=== PATIENT | male | born 1970 | race Caucasian/White ===

== ENCOUNTER → 2017-01-03 | Outpatient (CLI) | payer BC ==
[2017-01-03 08:37] LABS: CHLORIDE,CL 105 mmol/L (98-110); SODIUM,NA 137 mmol/L (136-146)
== END | disposition home or self-care (01) ==
LOC: MW.CHIM 07:50
PROVIDERS: ATTEND Internal Medicine
DX: I10 Essential (primary) hypertension (principal); E11.9 Type 2 diabetes mellitus without complications
CPT/HCPCS: 36415; 80053; 80061; 83036; 85025

== ENCOUNTER 2017-04-10 07:38 | Emergency (ER) | payer BC, OTHER ==
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
[2017-04-10] MEDS ORDERED: Sodium Chloride 0.9% 1,000 ML IV ONE (08:01)
[2017-04-10 08:53] LABS: CHLORIDE,CL 106 mmol/L (98-110); SODIUM,NA 137 mmol/L (136-146)
--- NOTE | 2017-04-10 09:16 | CT ---
CT of the chest, abdomen and pelvis with contrast. HISTORY: Shortness of breath TECHNIQUE: Axial CT images were obtained of the chest, abdomen and pelvis following administration o f 100 mL of Isovue-370 in the right antecubital fossa without complication. Coronal and sagittal rec onstructions obtained. FINDINGS: Chest: The lungs are clear without focal consolidation. No pleural effusion or pneumothorax. There i s calcified granuloma within the medial right lower lobe. There is an intrafissural lymph node noted along the right major fissure. The heart is normal in size without a pericardial effusion. No media stinal, hilar, or axillary lymphadenopathy. The central airways are clear. Abdomen: The liver, spleen, adrenal glands, and pancreas appear normal. The gallbladder appears norm al. No bulky retroperitoneal lymphadenopathy or abdominal ascites. The kidneys enhance and function symmetrically without evidence of obstructive uropathy. Pelvis: The large and small bowel are normal in caliber without evidence of obstruction. No pericolo eliezer or pericecal inflammation. The urinary bladder appears normal. No pelvic lymphadenopathy or free pelvic fluid. There is a nondisplaced right anterior seventh rib fracture. IMPRESSION: 1. Nondisplaced right anterior seventh rib fracture. 2. Otherwise no acute findings within the chest, abdomen, or pelvis.
[2017-04-10 10:43] VITALS: BP 133/79
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
[2017-04-10] MEDS ORDERED: Iopamidol 755 MG/ML 500 ML Multipack Bottle IVPUSH STA (16:13)
== END 2017-04-10 10:45 | disposition home or self-care (01) ==
LOC: MW.ED 07:38
DX: S22.31XA Fracture of one rib, right side, initial encounter for closed fracture (principal); F17.200 Nicotine dependence, unspecified, uncomplicated; Z79.4 Long term (current) use of insulin; Z79.84 Long term (current) use of oral hypoglycemic drugs; V43.92XA Unspecified car occupant injured in collision with other type car in traffic accident, initial encounter
CPT/HCPCS: 71260; 74177; 80053; 80305; 81001; 83690; 84484; 85025; 93005; 96360; 99284; G0480; J7040; Q9967; 99283

== ENCOUNTER 2019-03-29 09:47 | Emergency (ER) | payer BC ==
[2019-03-29 10:01] VITALS: BP 158/70
[2019-03-29] MEDS ORDERED: Ketorolac 60 MG/2 ML SDV IM ONE (10:05)
[2019-03-29] MEDS ORDERED: Diphtheria,Pertussis(Acell),Tetanus Vaccine 0.5 ML Syringe IM ONE (10:07)
[2019-03-29] MEDS ORDERED: Bacitracin Oint 1 GM U/D Packet TOP ONE (10:07)
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
[2019-03-29] MEDS ORDERED: Sodium Chloride 0.9% 2.5 ML Syringe FLUSH PRN (11:04)
[2019-03-29] MEDS ORDERED: Sodium Chloride 0.9% 1,000 ML IV ONE ×2 (11:04→12:20)
[2019-03-29] MEDS ORDERED: Sodium Chloride 0.9% 10 ML Syringe FLUSH PRN (11:04)
--- NOTE | 2019-03-29 11:21 | CR ---
Indication: Injury and pain Technique: Left ankle 3 views Comparison: None Findings/Impression: Bones: No acute fracture dislocation with fractures involving the lateral malleolus and posterior malleolus. Joint spaces: Ankle mortise is significantly widened anteriorly and medially. Soft tissues: Moderate soft tissue swelling. Dictated by Jose Heredia MD @ Mar 29 2019 11:18AM Signed by Dr. Jose Heredia @ Mar 29 2019 11:20AM
--- NOTE | 2019-03-29 11:23 | CR ---
Indication: Injury and pain Technique: Left foot 2 views Comparison: None Findings: Bones: No fracture or dislocation present in the foot. A fracture dislocation about the ankle is detailed on a separate report. Joint spaces: Unremarkable. Soft tissues: Unremarkable. Impression: No sign of acute injury in the left foot. Dictated by Jose Heredia MD @ Mar 29 2019 11:20AM Signed by Dr. Jose Heredia @ Mar 29 2019 11:22AM
--- NOTE | 2019-03-29 11:27 | CR ---
Indication: Injury and pain Technique: Left tibia and fibula 2 views Comparison: None Findings: Bones: The proximal to mid distal shafts of the tibia and fibula are normal. A fracture dislocation about the ankle is detailed in a separate report. Joint spaces: Unremarkable. Soft tissues: Unremarkable. Impression: No sign of acute injury in the proximal to distal shafts of the left tibia and fibula. Dictated by Jose Heredia MD @ Mar 29 2019 11:22AM Signed by Dr. Jose Heredia @ Mar 29 2019 11:25AM
[2019-03-29] MEDS ORDERED: ceFAZolin 2 GM in Premix Bag 1 BAG IV ONE (11:41)
[2019-03-29] MEDS ORDERED: Midazolam 1 MG/ML 2 ML SDV ONE (11:56)
--- NOTE | 2019-03-29 11:56 | PCM.PREANE ---
Preanesthetic Assessment - Anesthesia/Transfusion/Family Hx Anesthesia History: Prior Anesthesia Without Reaction Family History of Anesthesia Reaction: No Transfusion History: No Prior Transfusion(s) - Review of Systems General: No Symptoms Pulmonary: No Symptoms Cardiovascular: No Symptoms Gastrointestinal: No Symptoms Neurological: No Symptoms Other: Reports: None - Physical Assessment NPO Status Date: 03/29/19 NPO Status Time: 09:00 O2 Sat by Pulse Oximetry: 99 Respiratory Rate: 18 Vital Signs: Last Vital Signs Temp 97.6 F 03/29/19 09:57 Pulse 120 H 03/29/19 09:57 Resp 18 03/29/19 09:57 BP 158/70 H 03/29/19 09:57 Pulse Ox 99 03/29/19 09:57 Height: 5 ft 11 in Weight: 99.79 kg ASA Class: 2E Mental Status: Alert & Oriented x3 Airway Class: Mallampati = 2 Dentition: Reports: Normal Dentition Thyro-Mental Finger Breadths: 3 Mouth Opening Finger Breadths: 3 ROM/Head Extension: Full Lungs: Clear to Auscultation, Normal Respiratory Effort Cardiovascular: Regular Rate, Regular Rhythm - Lab Values: Laboratory Last Values POC Glucose 230 mg/dL (60-110) H 03/29/19 10:09 - Allergies Allergies/Adverse Reactions: Allergies Allergy/AdvReac Type Severity Reaction Status Date / Time No Known Allergies Allergy Verified 03/29/19 09:57 - Anesthesia Plan Free Text/Narrative:: Heavy Etoh use last night. Pt has received 1 liter NS in the ER. Pt understands the risk of aspiration and wishes to continue at this time. - Acknowledgements Anesthesia Type Planned: MAC Pt an Appropriate Candidate for the Planned Anesthesia: Yes Alternatives and Risks of Anesthesia Discussed w Pt/Guardian: Yes Pt/Guardian Understands and Agrees with Anesthesia Plan: Yes PreAnesthesia Questionnaire HEENT History: Reports: None Cardiovascular History: Reports: Hypertension Respiratory History: Reports: None Gastrointestinal History: Reports: None Genitourinary History: Reports: None Musculoskeletal History: Reports: None Neurological History: Reports: None Psychiatric History: Reports: None Endocrine/Metabolic History: Reports: Diabetes, Type I, Obesity/BMI 30+ Hematologic History: Reports: None Immunologic History: Reports: None Oncologic (Cancer) History: Reports: None Dermatologic History: Reports: None - Infectious Disease History Infectious Disease History: Reports: Chicken Pox - Past Surgical History GI Surgical History: Reports: Appendectomy Other Musculoskeletal Surgeries/Procedures:: Repair foot fracture - SUBSTANCE USE Smoking Status *Q: Former Smoker (Quit 2017) Recreational Drug Use History: No - HOME MEDS Home Medications: Home Meds Insulin Glarg,Human.Rec.Analog [LantUS Solostar] 45 unit SQ DAILY 04/10/17 [ History] Lisinopril [Prinivil] 10 mg PO DAILY 04/10/17 [History] metFORMIN [Glucophage] 1,000 mg PO DAILY 04/10/17 [History] Aspirin 81 mg PO DAILY 03/29/19 [History] Dulaglutide [Trulicity] 1.5 mg SQ WEEKLY 03/29/19 [History] Empagliflozin [Jardiance] 1 tab PO DAILY 03/29/19 [History] hydroCHLOROthiazide [Hydrochlorothiazide] 0.5 tab PO DAILY 03/29/19 [History] - CURRENT (IN HOUSE) MEDS Current Meds: Current Medications Sodium Chloride (Normal Saline) 1,000 mls @ 999 mls/hr IV STAT ONE Stop: 03/29/19 12:04 Last Admin: 03/29/19 11:29 Dose: 999 mls/hr Cefazolin Sodium/Dextrose 2 gm (/ Premix) 50 mls @ 100 mls/hr IV ONETIME ONE Stop: 03/29/19 12:10 Sodium Chloride (Saline Flush) 10 ml FLUSH ASDIRECTED PRN PRN Reason: Keep Vein Open Last Admin: 03/29/19 11:30 Dose: 10 ml Sodium Chloride (Saline Flush) 2.5 ml FLUSH ASDIRECTED PRN PRN Reason: Keep Vein Open Last Admin: 03/29/19 11:30 Dose: 2.5 ml Discontinued Medications Bacitracin (Bacitracin Oint 1 Gm) 1 dose TOP ONETIME ONE Stop: 03/29/19 10:08 Last Admin: 03/29/19 10:58 Dose: 1 dose Diphtheria/Tetanus/Acell Pertussis (Adacel) 0.5 ml IM .ONCE ONE Stop: 03/29/19 10:08 Last Admin: 03/29/19 10:54 Dose: 0.5 ml Ketorolac Tromethamine (Toradol) 60 mg IM ONETIME ONE Stop: 03/29/19 10:06 Last Admin: 03/29/19 10:57 Dose: 60 mg
[2019-03-29] MEDS ORDERED: Propofol 200 MG/20 ML SDV ONE (11:57)
[2019-03-29] MEDS ORDERED: fentaNYL 100 MCG/2 ML SDV ONE (11:57)
[2019-03-29] MEDS ORDERED: Bacitracin Oint 1 GM U/D Packet ONE (12:07)
[2019-03-29] MEDS ORDERED: Sodium Chloride 0.9% 10 ML SDV IV ONE (12:20)
--- NOTE | 2019-03-29 13:24 | CR ---
Indication: Fracture dislocation post reduction Technique: Left ankle 2 views Comparison: March 29, 2019 Findings/Impression: The dislocation has been successfully reduced. Ankle mortise is now congruent. Again demonstrated is a bimalleolar fracture involving the lateral and posterior malleolus. No new abnormality. Dictated by Jose Heredia MD @ Mar 29 2019 1:21PM Signed by Dr. Jose Heredia @ Mar 29 2019 1:22PM
--- NOTE | 2019-03-29 13:39 | CT ---
HISTORY: Left ankle pain, fractures. TECHNIQUE: Noncontrast CT of the left ankle. COMPARISON: Radiographs 03/29/2019. FINDINGS: Acute comminuted displaced fracture of the posterior malleolus of the distal tibia demonstrating 1.4 cm of maximal displacement at the articular surface as seen on sagittal image #41 of series 204. Fracture extends to the posterior margin of the medial malleolus. There is widening of the ankle mortise medially and anteriorly. Note is made of lateral subluxation of the talar dome with respect to the tibial plafond compatible with disruption of the deltoid ligament. There are tiny calcific or ossific fragments along the expected course of the deltoid ligament. - There is an acute comminuted fracture of the distal fibula. The dominant lateral malleolar fragment demonstrates approximately 1.3 cm of lateral displacement. The fibular metaphysis above the level of the fracture is impacted in to distal tibial fracture. There is an additional small fragment arising from the anterior distal fibula at the anterior syndesmotic ligament attachment site to the fibula with that fragment demonstrating 2 cm of displacement on axial image #373 for example. There is soft tissue swelling and hemorrhage about the lower leg and ankle. - Mild ankle joint degenerative changes. The talus appears intact. There is no calcaneal fracture. Tiny plantar calcaneal spur. Os peroneum. IMPRESSION: 1. Disrupted left ankle mortise. 2. Comminuted intra-articular fracture of the posterior malleolus of the distal tibia demonstrating 1.4 cm displacement. Widening of the medial ankle mortise with lateral subluxation of the talar dome with respect to the tibial plafond indicating deltoid ligament disruption. 3. Comminuted displaced fracture of the distal fibular metaphysis. There is lateral displacement of the dominant fragment by 1.3 cm. Additional small fragment involves the anterior syndesmotic ligament attachment site to the fibula with 2 cm displacement. 4. Soft tissue swelling and hemorrhage about the lower leg and ankle. Dictated by Samy Etienne MD @ 03/29/2019 1:36:54 PM Please note that all CT scans at this facility use dose modulation, iterative reconstruction, and/or weight-based dosing when appropriate to reduce radiation dose to as low as reasonably achievable. Dictated by: Samy Etienne MD @ 03/29/2019 13:36:58 (Electronically Signed)
== END 2019-03-29 13:34 | disposition home or self-care (01) ==
LOC: MW.ED 09:47
DX: S82.842A Displaced bimalleolar fracture of left lower leg, initial encounter for closed fracture (principal); I10 Essential (primary) hypertension; E10.9 Type 1 diabetes mellitus without complications; Z79.82 Long term (current) use of aspirin; Z79.899 Other long term (current) drug therapy; Z79.4 Long term (current) use of insulin; Z23 Encounter for immunization; Z90.49 Acquired absence of other specified parts of digestive tract; W01.0XXA Fall on same level from slipping, tripping and stumbling without subsequent striking against object, initial encounter; Y92.009 Unspecified place in unspecified non-institutional (private) residence as the place of occurrence of the external cause
CPT/HCPCS: 27810; 73590; 73600; 73610; 73620; 73700; 82962; 90471; 90715; 96361; 96365; 96372; 99152; 99153; 99283; A4217; J0690; J1885; J2250; J2704; J3010; J7040

== ENCOUNTER 2019-04-03 08:40 | Day surgery (SDC) | payer BC ==
[~2019-04-03 08:40] MED LIST: Acetaminophen/HYDROcodone 325-5 MG Tab PO PRN; Bupivacaine 0.25% 10 ML SDV ONE; Dexamethasone 4 MG/ML 5 ML MDV ONE; Lactated Ringers 1,000 ML IV SCH; Midazolam 1 MG/ML 2 ML SDV ONE; Mineral Oil/Petrolatum Ophth Oint 3.5 GM Tube ONE; Ondansetron 4 MG/2 ML SDV ONE; Propofol 200 MG/20 ML SDV ONE; Rocuronium 100 MG/10 ML Syringe ONE; ceFAZolin 2 GM in Premix Bag 1 BAG IV SCH; ceFAZolin/Dextrose,Iso-Osmotic 2 GM/50 ML Duplex Bag IV ONE; fentaNYL 250 MCG/5 ML SDV ONE
[2019-04-03] MEDS ORDERED: Phenylephrine 1% 10 MG/ML SDV ONE (09:18)
--- NOTE | 2019-04-03 09:31 | PCM.PREANE ---
Preanesthetic Assessment - Anesthesia/Transfusion/Family Hx Anesthesia History: Prior Anesthesia Without Reaction Family History of Anesthesia Reaction: No Transfusion History: No Prior Transfusion(s) - Review of Systems General: No Symptoms Pulmonary: No Symptoms Cardiovascular: No Symptoms (States he is active-shovels, mows grass, walks and no sob or chest pain) Gastrointestinal: No Symptoms Neurological: No Symptoms Other: Reports: None - Physical Assessment NPO Status Date: 04/02/19 NPO Status Time: 11:59 O2 Sat by Pulse Oximetry: 95 Respiratory Rate: 20 Vital Signs: Last Vital Signs Temp 36.0 C 04/03/19 08:50 Pulse 114 H 04/03/19 08:50 Resp 20 04/03/19 08:50 BP 125/85 04/03/19 08:50 Pulse Ox 95 04/03/19 08:50 Height: 1.83 m Weight: 113.398 kg ASA Class: 2 Mental Status: Alert & Oriented x3 Airway Class: Mallampati = 3 Dentition: Reports: Normal Dentition ROM/Head Extension: Full Lungs: Clear to Auscultation Cardiovascular: Regular Rate - Allergies Allergies/Adverse Reactions: Allergies Allergy/AdvReac Type Severity Reaction Status Date / Time No Known Allergies Allergy Verified 04/02/19 12:13 - Blood Blood Available: No - Acknowledgements Anesthesia Type Planned: General Anesthesia (scheduled prone case) Pt an Appropriate Candidate for the Planned Anesthesia: Yes Alternatives and Risks of Anesthesia Discussed w Pt/Guardian: Yes Pt/Guardian Understands and Agrees with Anesthesia Plan: Yes PreAnesthesia Questionnaire HEENT History: Reports: Other (See Below) Other HEENT History: wears glasses Cardiovascular History: Reports: High Cholesterol, Hypertension Respiratory History: Reports: None Gastrointestinal History: Reports: None Genitourinary History: Reports: None Musculoskeletal History: Reports: Fracture Other Musculoskeletal History: hx fx rt foot Neurological History: Reports: None Psychiatric History: Reports: None Endocrine/Metabolic History: Reports: Diabetes, Type II, Obesity/BMI 30+ Hematologic History: Reports: None Immunologic History: Reports: None Oncologic (Cancer) History: Reports: None Dermatologic History: Reports: None - Infectious Disease History Infectious Disease History: Reports: Chicken Pox - Past Surgical History Head Surgeries/Procedures: Reports: None HEENT Surgical History: Reports: None Cardiovascular Surgical History: Reports: None Respiratory Surgical History: Reports: None GI Surgical History: Reports: Appendectomy Male Surgical History: Reports: None Endocrine Surgical History: Reports: None Neurological Surgical History: Reports: None Musculoskeletal Surgical History: Reports: Other (See Below) (right ankle) Other Musculoskeletal Surgeries/Procedures:: Repair foot fracture, hx hand surgery Oncologic Surgical History: Reports: None Dermatological Surgical History: Reports: None - SUBSTANCE USE Smoking Status *Q: Former Smoker Tobacco Use Within Last Twelve Months: No Recreational Drug Use History: No - HOME MEDS Home Medications: Home Meds Insulin Glarg,Human.Rec.Analog [LantUS Solostar] 45 unit SQ DAILY 04/10/17 [ History] Lisinopril [Prinivil] 20 mg PO DAILY 04/10/17 [History] metFORMIN [Glucophage] 1,000 mg PO BID 04/10/17 [History] Aspirin 81 mg PO DAILY 03/29/19 [History] Dulaglutide [Trulicity] 1.5 mg SQ WEEKLY 03/29/19 [History] Empagliflozin [Jardiance] 25 mg PO DAILY 03/29/19 [History] hydroCHLOROthiazide [Hydrochlorothiazide] 0.5 tab PO DAILY 03/29/19 [History] Simvastatin 0.5 tab PO DAILY 04/02/19 [History] - CURRENT (IN HOUSE) MEDS Current Meds: Current Medications Hydrocodone Bitart/Acetaminophen ([place] 325-5 Mg) 1 - 2 tab PO Q4H PRN PRN Reason: Pain Cefazolin Sodium/Dextrose 2 gm (/ Premix) 50 mls @ 100 mls/hr IV ONCALL [facility] Lactated Ringer's (Ringers, Lactated) 1,000 mls @ 100 mls/hr IV ASDIRECTED [facility] Last Admin: 04/03/19 09:00 Dose: 100 mls/hr Discontinued Medications Bupivacaine HCl (Sensorcaine-Mpf 0.25%) Confirm Administered Dose 10 ml .ROUTE .STK-MED ONE Stop: 04/03/19 07:49 Bupivacaine HCl (Sensorcaine-Mpf 0.25%) Confirm Administered Dose 10 ml .ROUTE .STK-MED ONE Stop: 04/03/19 07:51 Cefazolin Sodium/Dextrose (Ancef) Confirm Administered Dose 2 gm IV .STK-MED ONE Stop: 04/03/19 08:02 Dexamethasone (Dexamethasone) Confirm Administered Dose 20 mg .ROUTE .STK-MED ONE Stop: 04/03/19 07:32 Dexamethasone (Dexamethasone) Confirm Administered Dose 20 mg .ROUTE .[facility] ONE Stop: 04/03/19 07:32 Fentanyl (Sublimaze) Confirm Administered Dose 250 mcg .ROUTE .[facility]-MED ONE Stop: 04/03/19 07:30 Lidocaine HCl (Xylocaine-Mpf 1%) Confirm Administered Dose 5 mls @ as directed .ROUTE .[facility] ONE Stop: 04/03/19 07:32 Midazolam HCl (Versed 1 Mg/Ml) Confirm Administered Dose 2 mg .ROUTE .[facility]-MED ONE Stop: 04/03/19 07:30 Mineral Oil/White Petrolatum (Lacri-Lube S.O.P Oint) Confirm Administered Dose 3.5 gm .[address] .[facility] ONE Stop: 04/03/19 07:33 Ondansetron HCl (Zofran) Confirm Administered Dose 4 mg .ROUTE .[facility]-MED ONE Stop: 04/03/19 07:32 Ondansetron HCl (Zofran) Confirm Administered Dose 4 mg .ROUTE .[facility] ONE Stop: 04/03/19 07:32 Phenylephrine HCl (Luis Fernando-Synephrine) Confirm Administered Dose 10 mg .ROUTE .[facility] ONE Stop: 04/03/19 09:19 Propofol (Diprivan 20 Ml) Confirm Administered Dose 200 mg .ROUTE .[facility]-MED ONE Stop: 04/03/19 07:30 Rocuronium [place] (Zemuron) Confirm Administered Dose 100 mg .ROUTE .[facility] ONE Stop: 04/03/19 08:12 Succinylcholine Chloride (Succinylcholine Chloride) Confirm Administered Dose 200 mg .ROUTE .[facility] ONE Stop: 04/03/19 08:12
[2019-04-03] MEDS ORDERED: Propofol 200 MG/20 ML SDV ONE (11:23)
[2019-04-03] MEDS ORDERED: fentaNYL 100 MCG/2 ML SDV IVPUSH PRN (12:01)
[2019-04-03] MEDS ORDERED: HYDROmorphone 2 MG/ML Syringe ONE (12:38)
[2019-04-03] MEDS ORDERED: Sodium Chloride 0.9% 20 ML ONE (12:39)
[2019-04-03] MEDS ORDERED: fentaNYL 100 MCG/2 ML SDV ONE (13:14)
--- NOTE | 2019-04-03 13:45 | PCM.OPNOTE ---
- General Post-Op/Procedure Note Date of Surgery/Procedure: 04/03/19 Operative Procedure(s): ORIF left trimalleolar ankle fracture, posterior and lateral only Post-Op Diagnosis: L trimalleolar ankle fracture Anesthesia Technique: General ET Tube Primary Surgeon: Patt Macias Rack Room Worker: Valentine Reyna EBL in mLs: 10 Condition: Good Free Text/Narrative:: tt=72 min #[id number]
--- NOTE | 2019-04-03 14:19 | PCM.POSTAN ---
POST ANESTHESIA ASSESSMENT - MENTAL STATUS Mental Status: Alert, Oriented - RESPIRATORY Respiratory Status: Respiratory Rate WNL, Airway Patent, O2 Saturation Stable - CARDIOVASCULAR CV Status: Pulse Rate WNL, Blood Pressure Stable - GASTROINTESTINAL GI Status: No Symptoms - POST OP HYDRATION Hydration Status: Adequate & Stable
--- NOTE | 2019-04-03 14:56 | PCM48HPAN ---
Post Anesthesia Note - EVALUATION WITHIN 48HRS OF ANESTHETIC Vital Signs in Normal Range: Yes Patient Participated in Evaluation: Yes Respiratory Function Stable: Yes Airway Patent: Yes Cardiovascular Function Stable: Yes Hydration Status Stable: Yes Pain Control Satisfactory: Yes Nausea and Vomiting Control Satisfactory: Yes Mental Status Recovered: Yes Pulse Rate: 88 SaO2: 97 (RA) Resp Rate: 16 Blood Pressure: 148/78
[2019-04-03 15:13] VITALS: BP 135/85
--- NOTE | 2019-04-03 15:17 | OR ---
SURGEON: Patt Macias MD DATE OF PROCEDURE: 04/03/2019 PREOPERATIVE DIAGNOSIS: Left trimalleolar ankle fracture/dislocation. POSTOPERATIVE DIAGNOSIS: Left trimalleolar ankle fracture/dislocation. PROCEDURE PERFORMED: Open reduction and internal fixation of left trimalleolar ankle fracture (posterior and lateral malleolus only). PRIMARY SURGEON: Patt Macias MD. CLINICAL TRAINER: KATELYNN Au. ANESTHESIA: General. ESTIMATED BLOOD LOSS: 10 mL. TOURNIQUET TIME: 72 minutes. COMPLICATIONS: None. DVT PROPHYLAXIS: PAS boot to the nonoperative leg. IMPLANTS USED: Cummaquid / semitubular plate with 3.5 mm cortical screws and two 4.0 mm partially threaded screws with washers. BRIEF HISTORY: Alexx is a 49-year-old male who sustained a fall off his deck on March 29, 2019. He continued to have pain in the ankle and was subsequently seen the following day in the emergency room. He was found to have a fracture dislocation of the ankle and subsequently underwent closed reduction in the emergency room. He was placed in a splint and referred for orthopedic evaluation. He was evaluated in clinic yesterday. Due to the unstable nature of his injury, I did recommend surgical treatment. The risks and goals of the procedure were discussed with the patient and were documented preoperatively. He agreed to proceed. DESCRIPTION OF PROCEDURE: The patient was properly identified and brought to the operating room. Light sedation was administered on the cart. His splint was taken down. He was found to have a large fracture blister along the medial aspect of his ankle. A superficial abrasion was also noted anteriorly. The posterolateral skin appeared intact and there were wrinkles present within the skin. I elected to proceed with surgical treatment. A well-padded tourniquet was applied to the left lower extremity and general anesthesia was administered. He was then placed in a prone position on the operating room table. Chest rolls were used to allow the abdominal contents to hang free. Tegaderm dressings were then placed over the fracture blister after the blister fluid had been expressed. The Tegaderm dressing was left in place as the left lower extremity was prepped in standard fashion using ChloraPrep solution. It was then sterilely draped. A time-out was performed to ensure correct site and procedure. Preoperative antibiotics were given. The surgical site had been marked preoperatively. An Esmarch was used to exsanguinate the left lower extremity and the tourniquet was inflated to 250 mmHg. An incision was made along the posterolateral aspect of the ankle between the Achilles tendon and distal fibula. Subcutaneous tissues were incised. Care was taken to look for the sural nerve and this was not encountered. The peroneal tendon and muscle bellies were then identified. The fibular fracture was identified and the peroneal tendons were brought in a medial manner. The fracture was identified and copiously irrigated with saline solution to remove the fracture hematoma. Bone reduction clamps were used to reduce the fibula to a nearly anatomic position. An interfragmentary screw was placed for provisional fixation. I elected to proceed with a 6-hole plate. This allowed 2 screws distal to the fracture with 3 screws proximal. 3.5 mm cortical screws were used. C-arm confirmed nearly anatomic reduction of the fracture along with gnosticism of fibular length. The peroneal tendons were then brought in a lateral fashion and the distal tibia, posterior malleolus fracture was identified. This was copiously irrigated with saline solution. The fracture fragment was quite large. Two K- wires were placed in a [id number] fashion after the fracture was reduced. This provided good provisional fixation. Position of the K-wires was checked in the lateral view. These were then measured and two 4.0 mm partially threaded cancellous screws with washers were placed. I was able to see good compression at the fracture site. Final C-arm images confirmed acceptable reduction of the fracture with good gnosticism of the ankle mortise. There was no widening of the syndesmosis with external rotation stress view. Small fragments of bone were noted off the medial malleolus; however, I did not feel that surgical repair of these was necessary. The wounds were then copiously irrigated with saline solution. The deep tissues were closed with 0 Vicryl. Tourniquet was deflated and no significant bleeding was noted. Subcutaneous tissues were closed with 2-0 Monocryl and the skin was closed with gerry. Xeroform gauze was placed over the wound and new Tegaderm dressings were placed over the fracture blister and anterior abrasion. He was placed in a well-padded posterior splint with medial and lateral stabilizing slabs. He was awakened from his anesthetic and transferred back to the operating room cart. He was brought to recovery room in stable condition. All needle and sponge counts were correct. EDGARD / ZAY /[id number]
--- NOTE | 2019-04-04 08:58 | CR ---
EXAMINATION: Left ankle HISTORY: Fracture COMPARISON: CT dated 03/29/2019 TECHNIQUE: 4 views FINDINGS/IMPRESSION: Operative control films demonstrate screw and plate fixation of a distal fibular fracture and 2 screws fixating the posterior malleolus.
== END 2019-04-03 15:25 | disposition home or self-care (01) ==
LOC: MW.SDS 08:40
PROVIDERS: ATTEND Orthopaedic Surgery
DX: S82.852A Displaced trimalleolar fracture of left lower leg, initial encounter for closed fracture (principal); E11.9 Type 2 diabetes mellitus without complications; J44.9 Chronic obstructive pulmonary disease, unspecified; E78.5 Hyperlipidemia, unspecified; I10 Essential (primary) hypertension; E78.00 Pure hypercholesterolemia, unspecified; E66.9 Obesity, unspecified; Z68.35 Body mass index [BMI] 35.0-35.9, adult; Z87.891 Personal history of nicotine dependence; Z79.4 Long term (current) use of insulin; Z79.82 Long term (current) use of aspirin; Z79.899 Other long term (current) drug therapy; W17.89XA Other fall from one level to another, initial encounter
CPT/HCPCS: 01480; 82962; A9270-GY; C1713; C1769; J0330; J0690; J1100; J1170; J2001; J2250; J2370; J2405; J2704; J3010; J3490; J7120

== ENCOUNTER 2021-07-28 22:33 | Emergency (ER) | payer OTHER ==
[2021-07-28 23:04] VITALS: BP 144/83; PULSE 130
--- NOTE | 2021-07-28 23:21 | EDM.PDOC ---
ED HPI GENERAL MEDICAL PROBLEM - General Chief Complaint: General Stated Complaint: RT SHOULDER SURGERY TODAY, POSSIBLE LEAK Time Seen by Provider: 07/28/21 23:07 Source of Information: Reports: Patient History Limitations: Reports: No Limitations - History of Present Illness INITIAL COMMENTS - FREE TEXT/NARRATIVE: Patient is a 51-year-old male presents today for leakage from the surgical site. Patient had a shoulder repair done in [facility] earlier today. On arrival ride home there was some leaking around the bandage. We pulled it off and when the Steri-Strips was off. He denies any pain in his arm has a digital block in the right now denies any weakness fever chills other complaints. Denies any falls or injury to the arm after the surgery. - Related Data Allergies Allergy/AdvReac Type Severity Reaction Status Date / Time No Known Allergies Allergy Verified 04/02/19 12:13 Home Meds: Home Meds Insulin Glarg,Human.Rec.Analog [LantUS Solostar] 45 unit SQ DAILY 04/10/17 [History] Lisinopril [Prinivil] 20 mg PO DAILY 04/10/17 [History] metFORMIN [Glucophage] 1,000 mg PO BID 04/10/17 [History] Aspirin 81 mg PO DAILY 03/29/19 [History] Dulaglutide [Trulicity] 1.5 mg SQ WEEKLY 03/29/19 [History] Empagliflozin [Jardiance] 25 mg PO DAILY 03/29/19 [History] hydroCHLOROthiazide [Hydrochlorothiazide] 0.5 tab PO DAILY 03/29/19 [History] Simvastatin 0.5 tab PO DAILY 04/02/19 [History] Acetaminophen/HYDROcodone [[place] 325-5 MG] 1 - 2 tab PO Q4H PRN #40 tablet 04/03/19 [Rx] Past Medical History HEENT History: Reports: Impaired Vision, Other (See Below) Other HEENT History: wears glasses Cardiovascular History: Reports: High Cholesterol, Hypertension Respiratory History: Reports: None Gastrointestinal History: Reports: None Genitourinary History: Reports: None Musculoskeletal History: Reports: Fracture Other Musculoskeletal History: hx fx rt foot Neurological History: Reports: None Psychiatric History: Reports: None Endocrine/Metabolic History: Reports: Diabetes, Type II, Obesity/BMI 30+ Hematologic History: Reports: None Immunologic History: Reports: None Oncologic (Cancer) History: Reports: None Dermatologic History: Reports: None - Infectious Disease History Infectious Disease History: Reports: Chicken Pox - Past Surgical History Head Surgeries/Procedures: Reports: None HEENT Surgical History: Reports: None Cardiovascular Surgical History: Reports: None Respiratory Surgical History: Reports: None GI Surgical History: Reports: Appendectomy Male Surgical History: Reports: None Endocrine Surgical History: Reports: None Neurological Surgical History: Reports: None Musculoskeletal Surgical History: Reports: Other (See Below) Other Musculoskeletal Surgeries/Procedures:: Repair foot fracture, hx hand surgery, right shoulder replacement Oncologic Surgical History: Reports: None Dermatological Surgical History: Reports: None Social & Family History - Family History Family Medical History: No Pertinent Family History - Tobacco Use Tobacco Use Status *Q: Never Tobacco User Second Hand Smoke Exposure: No - Caffeine Use Caffeine Use: Reports: Coffee - Recreational Drug Use Recreational Drug Use: No ED ROS GENERAL - Review of Systems Review Of Systems: See Below Constitutional: Reports: No Symptoms HEENT: Reports: No Symptoms Respiratory: Reports: No Symptoms Cardiovascular: Reports: No Symptoms Endocrine: Reports: No Symptoms GI/Abdominal: Reports: No Symptoms : Reports: No Symptoms Musculoskeletal: Reports: No Symptoms Skin: Reports: No Symptoms Neurological: Reports: No Symptoms Psychiatric: Reports: No Symptoms Hematologic/Lymphatic: Reports: No Symptoms Immunologic: Reports: No Symptoms ED EXAM, GENERAL - Physical Exam Exam: See Below Exam Limited By: No Limitations General Appearance: Alert, WD/WN, No Apparent Distress Eye Exam: Bilateral Eye: EOMI, PERRL Neck: Normal Inspection Respiratory/Chest: No Respiratory Distress Cardiovascular: Normal Peripheral Pulses, Regular Rate, Rhythm Extremities: No: Normal Inspection (Surgery site looks well the Steri-Strips are in place please been controlled), Normal Range of Motion (Will not range since recent surgery) Neurological: Alert, Oriented, Normal Cognition, Normal Gait Course - Vital Signs Last Recorded V/S: Last Vital Signs Temp 95.9 F L 07/28/21 22:58 Pulse 130 H 07/28/21 22:58 Resp 19 07/28/21 22:58 BP 144/83 H 07/28/21 22:58 Pulse Ox 94 L 07/28/21 22:58 Departure - Departure Time of Disposition: 23:19 Disposition: Home, Self-Care 01 Condition: Good Clinical Impression: Post surgical complication - Discharge Information *PRESCRIPTION DRUG MONITORING PROGRAM REVIEWED*: Not Applicable *COPY OF PRESCRIPTION DRUG MONITORING REPORT IN PATIENT SHAUN: Not Applicable Referrals: Ron Crawford MD [Primary Care Provider] - Additional Instructions: You were seen today after there was some leakage from your surgical site. After looking at it there was a piece of Steri-Strip to come off we were able to reapply and closed wound optimistic control of the bleeding. We recommend you continue to follow-up with the surgeon that performed the operation. If you have any other concerning signs or symptoms please return to the ED otherwise follow-up with your primary care physician. The following information is given to patients seen in the emergency department who are being discharged to home. This information is to outline your options for follow-up care. We provide all patients seen in our emergency department with a follow-up referral. The need for follow-up, as well as the timing and circumstances, are variable depending upon the specifics of your emergency department visit. If you don't have a primary care physician on staff, we will provide you with a referral. We always advise you to contact your personal physician following an emergency department visit to inform them of the circumstance of the visit and for follow-up with them and/or the need for any referrals to a consulting specialist. The emergency department will also refer you to a specialist when appropriate. This referral assures that you have the opportunity for follow-up care with a specialist. All of these measure are taken in an effort to provide you with optimal care, which includes your follow-up. Under all circumstances we always encourage you to contact your private physician who remains a resource for coordinating your care. When calling for follow-up care, please make the office aware that this follow-up is from your recent emergency room visit. If for any reason you are refused follow-up, please contact the [facility] Emergency Department at and asked to speak to the emergency department charge nurse. Please follow up with your primary care physician. If you do not have a primary care physician, see below: [facility] [address] [place] [id number] [facility] [place] [address] [place] [id number] Sepsis Event Note (ED) - Focused Exam Vital Signs: Vital Signs Temp Pulse Resp BP Pulse Ox 07/28/21 22:58 95.9 F L 130 H 19 144/83 H 94 L - Assessment/Plan Plan: Patient is a 51-year-old male presents today for weakness from his recent shoulder surgery today. We were able to replace the Steri-Strips and control the bleeding. Patient was well will be discharged home.
== END 2021-07-28 23:28 | disposition home or self-care (01) ==
LOC: MW.ED 22:33
DX: M96.89 Other intraoperative and postprocedural complications and disorders of the musculoskeletal system (principal); E78.00 Pure hypercholesterolemia, unspecified; I10 Essential (primary) hypertension; E11.9 Type 2 diabetes mellitus without complications; E66.9 Obesity, unspecified; Z68.31 Body mass index [BMI] 31.0-31.9, adult; Z79.4 Long term (current) use of insulin; Z79.899 Other long term (current) drug therapy; Z79.82 Long term (current) use of aspirin
CPT/HCPCS: 99283